=== PATIENT | male | born 1985 | race Hispanic/Latino ===

== ENCOUNTER 2023-10-16 20:17 | Emergency (ER) | payer OTHER ==
--- NOTE | 2023-10-16 20:41 | ER ---
Nurse's Notes [facility] Name: Ramon Cash Age: 37 yrs Sex: Male : 1985 Arrival Date: 10/16/2023 Time: 20:17 Bed IW1 Private MD: Diagnosis: Cellulitis of right lower limb;Cutaneous abscess of right upper limb;Cutaneous abscess of left lower limb Presentation: 10/15 20:31 Chief complaint: Patient states: right elbow bilateral leg spots swelling, tight, hot vc1 spots. Does not itch. Coronavirus screen: Client denies travel out of the [place] in the last 14 days. At this time, the client does not indicate any symptoms associated with coronavirus-19. Ebola Screen: Patient negative for fever greater than or equal to 101.5 degrees Fahrenheit, and additional compatible Ebola Virus Disease symptoms Patient denies exposure to infectious person. Patient denies travel to an Ebola-affected area in the 21 days before illness onset. No symptoms or risks identified at this time. Initial Sepsis Screen: Does the patient meet any 2 criteria? No. Patient's initial sepsis screen is negative. Does the patient have a suspected source of infection? No. Patient's initial sepsis screen is negative. Risk Assessment: Do you want to hurt yourself or someone else? Patient reports no desire to harm self or others. Onset of symptoms was October 13, 2023. Care prior to arrival: None. Activity prior to arrival: None. Mechanism of Injury: No Mechanism of Injury. Transition of care: patient was not received from another setting of care. 20:31 Method Of Arrival: Ambulatory vc1 20:31 Acuity: ANDREI 4 vc1 Historical: - Allergies: 20:36 No Known Allergies; vc1 - Home Meds: 20:36 None [Active]; vc1 - PMHx: 20:36 None; vc1 - PSHx: 20:36 None; vc1 - Immunization history:: Client reports having NOT received the Covid vaccine. - Infectious Disease History:: Denies. - Social history:: Smoking status: Patient reports use of chewing tobacco. Patient/guardian denies using tobacco, Stopped _ months ago 3. Screenin:37 [facility] ED Fall Risk Assessment (Adult) History of falling in the last 3 months, vc1 including since admission No falls in past 3 months (0 pts) Confusion or Disorientation No (0 pts) Intoxicated or Sedated No (0 pts) Impaired Gait No (0 pts) Mobility Assist Device Used No (0 pt) Altered Elimination No (0 pt) Score/Fall Risk Level 0 - 2 = Low Risk Oriented to surroundings, Maintained a safe environment, Educated pt \T\ family on fall prevention, incl call for assistance when getting out of bed. Abuse screen: Denies threats or abuse. Nutritional screening: No deficits noted. Tuberculosis screening: No symptoms or risk factors identified. Assessment: 20:57 General: Appears in no apparent distress. comfortable, Behavior is calm, cooperative, vc1 appropriate for age. Pain: Complains of pain in right elbow, right leg and left leg Pain does not radiate. Pain currently is 0 out of 10 on a pain scale. at worst was 3 out of 10 on a pain scale. Quality of pain is described as sharp. Neuro: Level of Consciousness is awake, alert, obeys commands, Oriented to person, place, time, situation, Appropriate for age. Cardiovascular: Heart tones S1 S2 Patient's skin is warm and dry. Respiratory: Airway is patent Respiratory effort is even, unlabored, Respiratory pattern is regular, symmetrical, Breath sounds are clear bilaterally. GI: No deficits noted. No signs and/or symptoms were reported involving the gastrointestinal system. : No deficits noted. No signs and/or symptoms were reported regarding the genitourinary system. EENT: No deficits noted. No signs and/or symptoms were reported regarding the EENT system. Derm: Skin is intact, is healthy with good turgor, Wound noted right elbow, right leg and left leg. Musculoskeletal: No deficits noted. No signs and/or symptoms reported regarding the musculoskeletal system. Vital Signs: 20:31 BP 156 / 89; Pulse 113; Resp 18; Temp 98.2; Pulse Ox 100% ; Weight 95.25 kg; Height 5 vc1 ft. 6 in. ; Pain 0/10; 20:31 Body Mass Index 33.89 (95.25 kg, 167.64 cm) vc1 20:31 Pain Scale: Adult vc1 ED Course: 20:21 Patient arrived in ED. [id number] 20:22 Nadiya Avendaño FNP-C is [facility]. kb 20:22 Bo Manley MD is Attending Physician. kb 20:36 Triage completed. vc1 20:37 Arm band placed on right wrist. vc1 20:37 Patient has correct armband on for positive identification. Provided Education on: abx vc1 use. 20:59 No provider procedures requiring assistance completed. Patient did not have IV access vc1 during this emergency room visit. Administered Medications: 20:55 Drug: Cephalexin PO 500 mg PO once Route: PO; vc1 20:56 Follow up: Response: Medication administered at discharge. vc1 20:56 Drug: Trimethoprim-Sulfamethoxazole PO (160 mg-800 mg (DS) 1 tablet PO once Route: PO; vc1 20:56 Follow up: Response: Medication administered at discharge. vc1 Medication: 20:38 VIS not applicable for this client. vc1 Outcome: 20:40 Discharge ordered by . kb 20:59 Discharged to home ambulatory, with family, vc1 20:59 Condition: good 20:59 Discharge instructions given to patient, Instructed on discharge instructions, follow up and referral plans. medication usage, Demonstrated understanding of instructions, follow-up care, medications, Prescriptions given X 2, 21:00 Patient left the ED. vc1 Signatures: Nadiya Avendaño, [employer] VISITING TEACHER-C [employer] 7 [employer] VISITING TEACHER-Ckb Lien Mckay [id number] Senia Mckinney, RN RN vc1
--- NOTE | 2023-10-16 20:41 | EDPHYS ---
Physician Documentation [facility] Name: Ramon Cash Age: 37 yrs Sex: Male : 1985 Arrival Date: 10/16/2023 Time: 20:17 Bed IW1 Private MD: ED Physician Bo Manley HPI: 10/15 20:36 This 37 yrs old Male presents to ER via Unassigned with complaints of Swelling kb of Lower Extremity, Rash. 23:16 Pt is a 37 year old male who presents for multiple areas of redness to bilateral lower kb extremities and one area on right upper arm. States they started 4 days ago and more have been coming up. States the initial spot has gotten more swollen and more red. Denies fever, itching. Historical: - Allergies: 20:36 No Known Allergies; vc1 - Home Meds: 20:36 None [Active]; vc1 - PMHx: 20:36 None; vc1 - PSHx: 20:36 None; vc1 - Immunization history:: Client reports having NOT received the Covid vaccine. - Infectious Disease History:: Denies. - Social history:: Smoking status: Patient reports use of chewing tobacco. Patient/guardian denies using tobacco, Stopped _ months ago 3. ROS: 23:16 Constitutional: As per HPI kb Exam: 23:16 Constitutional: This is a well developed, well nourished patient who is awake, alert, kb and in no acute distress. Head/Face: Normocephalic, atraumatic. ENT: Moist Mucous membranes Cardiovascular: Regular rate Respiratory: Respirations even and unlabored. No increased work of breathing. Talking in full sentences Abdomen/GI: Soft, non-tender. No distention MS/ Extremity: Pulses equal, no cyanosis. Neurovascular intact. Full, normal range of motion. Neuro: Awake and alert, GCS 15, oriented to person, place, time, and situation. Moves all extremities. Normal gait. 23:16 Skin: abscess, that is small, of the right tricep, cellulitis, that is mild, on the right murrieta and left murrieta, Vital Signs: 20:31 BP 156 / 89; Pulse 113; Resp 18; Temp 98.2; Pulse Ox 100% ; Weight 95.25 kg; Height 5 vc1 ft. 6 in. ; Pain 0/10; 20:31 Body Mass Index 33.89 (95.25 kg, 167.64 cm) vc1 20:31 Pain Scale: Adult vc1 MDM: 20:28 Patient medically screened. kb 23:16 Differential diagnosis: cellulitis, insect bite, abscess. Data reviewed: vital signs, kb nurses notes. Counseling: I had a detailed discussion with the patient and/or guardian regarding the historical points, exam findings, and any diagnostic results supporting the discharge/admit diagnosis, the need for outpatient follow up, a family practitioner, to return to the emergency department if symptoms worsen or persist or if there are any questions or concerns that arise at home. ED course: No drainable abscess. Pt is nontoxic in appearance, afebrile. . Administered Medications: 20:55 Drug: Cephalexin PO 500 mg PO once Route: PO; vc1 20:56 Follow up: Response: Medication administered at discharge. vc1 20:56 Drug: Trimethoprim-Sulfamethoxazole PO (160 mg-800 mg (DS) 1 tablet PO once Route: PO; vc1 20:56 Follow up: Response: Medication administered at discharge. vc1 Disposition: 10/16 20:32 Co-signature as Attending Physician, Bo Manley MD I agree with the assessment sp4 and plan of care. I reviewed the patient's care provided by Advanced Practice Provider \T\ agree w/ the diagnosis \T\ care plan. I personally saw the pt \T\ performed a substantive portion of the visit, incldng all aspects of the (History/Exam/Medical Decision Making). Disposition Summary: 10/16/23 20:40 Discharge Ordered Notes: Location: Home kb Condition: Stable kb Diagnosis - Cellulitis of right lower limb kb - Cutaneous abscess of right upper limb kb - Cutaneous abscess of left lower limb kb Followup: kb - With: Emergency Department - When: As needed - Reason: Worsening of condition Followup: kb - With: Private Physician - When: 2 - 3 days - Reason: Recheck today's complaints, Continuance of care, Re-evaluation by your physician Discharge Instructions: - Discharge Summary Sheet kb - Skin Abscess, [id number] kb - Cellulitis, Adult, [id number] kb Forms: - Medication Reconciliation Form kb - Antibiotic Education kb - Prescription Opioid Use kb - Patient Portal Instructions kb - Leadership Thank You Letter kb Prescriptions: - Cephalexin 500 mg Oral Capsule - take 1 capsule ORAL route every 8 hours for 10 days; 30 capsule; Refills: 0, kb Product Selection Permitted - Bactrim DS 800-160 mg Oral Tablet - take 1 tablet ORAL route every 12 hours for 10 days; 20 tablet; Refills: 0, kb Product Selection Permitted Signatures: Nadiya Avendaño FNP-C FNP-Ckb Calcote, Vanessa, RN RN vc1 Bo Manley MD MD sp4
[2023-10-16] MEDS ORDERED: CEPHALEXIN 250 MG CAP ONE (20:51)
[2023-10-16] MEDS ORDERED: SMZ./TMP. 800/160 MG TABLET ONE (20:51)
[2023-10-16 21:03] VITALS: BP 156/89; TEMP 98.2; O2SAT 100
== END 2023-10-16 21:00 | disposition home or self-care (01) ==
LOC: ER 20:17
DX: L03.115 Cellulitis of right lower limb (principal); L02.413 Cutaneous abscess of right upper limb; L02.416 Cutaneous abscess of left lower limb